=== PATIENT | female | born 1980 | race Caucasian/White ===

== ENCOUNTER 2018-01-20 00:41 | Emergency (ER) | payer OTHER ==
[~2018-01-20] VITALS: Ht 167.6 cm; Wt 55.6 kg
[2018-01-20 00:48] VITALS: Ht 167.6 cm; Wt 55.6 kg
[2018-01-20 04:25] VITALS: BP 127/82
== END 2018-01-20 04:25 | disposition home or self-care (01) ==
LOC: ED 00:41
DX: T78.2XXA Anaphylactic shock, unspecified, initial encounter (principal); Z88.6 Allergy status to analgesic agent
CPT/HCPCS: J0171; J1200; J2930; J7030